=== PATIENT | female | born 1950 | race American Indian/Alaskan Native ===

== ENCOUNTER 2017-05-07 08:42 | Outpatient (CLI) | payer OTHER ==
--- NOTE | 2017-05-07 09:30 | Mammography Report ---
Bilateral mammogram: No previous studies available. CAD study utilized. Findings: Heterogeneous breast parenchyma bilaterally. Faint group of punctate calcification noted at upper outer right breast. 4 mm circumscribed density noted in the upper posterior left breast. Benign calcification left breast. Benign axillary nodes. Impression: Punctate calcifications identified at the right breast. Circumscribed density upper posterior left breast. Recommend comparison with previous studies. If previous studies are not available spot mag and if necessary sonographic examination advised. BI-RADS CATEGORY: 0 = Needs additional imaging evaluation ACR BI-RADS MAMMOGRAPHIC CODES: 0 = Needs additional imaging evaluation; 1 = Negative; 2 = Benign; 3 = Probably benign; 4 = Suspicious; 5 = Malignant; 6 = Known biopsy-proven malignancy COMMENT: 1. Dense breast tissue, i.e., adenosis, fibrocystic changes, etc., may obscure an underlying neoplasm. 2. Approximately 10% of cancers are not detected with mammography. 3. A negative mammography report should not delay biopsy if a clinically suspicious mass is present. COMMENT: Patient follow-up letters are generated in [employer].
== END 2017-05-07 08:43 | disposition home or self-care (01) ==
LOC: SPVWC 08:42
PROVIDERS: ATTEND Family Medicine
DX: Z12.31 Encounter for screening mammogram for malignant neoplasm of breast (principal)
CPT/HCPCS: 77067; G0202

== ENCOUNTER 2018-06-22 08:59 | Outpatient (CLI) | payer OTHER ==
--- NOTE | 2018-07-01 14:06 | Mammography Report ---
BILATERAL DIGITAL DIAGNOSTIC MAMMOGRAM : 06/22/18 08:59:00 CLINICAL: Six month follow-up right calcifications. COMPARISON:12/23/17 and 05/07/17 mammograms FINDINGS: Routine views plus right ML and CC magnification views were performed. Right upper outer scattered largely punctate calcifications are stable. No associated mass or architectural distortion. Stable left upper more scattered punctate calcifications. IMPRESSION: Stable probably benign calcifications. BI-RADS CATEGORY: 3 -- Probably Benign RECOMMENDATION: 6 month follow-up right magnification views. ACR BI-RADS MAMMOGRAPHIC CODES: 0 = Needs additional imaging evaluation; 1 = Negative; 2 = Benign; 3 = Probably benign; 4 = Suspicious; 5 = Malignant; 6 = Known biopsy-proven malignancy COMMENT: 1. Dense breast tissue, i.e., adenosis, fibrocystic changes, etc., may obscure an underlying neoplasm. 2. Approximately 10% of cancers are not detected with mammography. 3. A negative mammography report should not delay biopsy if a clinically suspicious mass is present. COMMENT: Patient follow-up letters are generated by our [employer] application.
== END 2018-06-22 09:00 | disposition home or self-care (01) ==
LOC: SPVWC 08:59
PROVIDERS: ATTEND Family Medicine
DX: R92.8 Other abnormal and inconclusive findings on diagnostic imaging of breast (principal); I10 Essential (primary) hypertension; Z88.0 Allergy status to penicillin
CPT/HCPCS: 77066

== ENCOUNTER 2018-12-22 09:01 | Outpatient (CLI) | payer OTHER ==
--- NOTE | 2018-12-22 09:32 | Mammography Report ---
Spot compression magnification of calcifications right upper breast: Compared to 06/22/18 and 12/23/17. History: Follow up of cluster of probably benign calcifications upper right breast. Findings: There is scattered largely punctate calcifications noted at the upper right breast mid and posterior aspect. No significant interval change or pleomorphism is noted. No mass is seen. Impression: Probably benign calcifications. Six-month followup with bilateral diagnostic mammogram and spot compression magnification of calcifications right breast is recommended. BI-RADS CATEGORY: 3 = Probably benign ACR BI-RADS MAMMOGRAPHIC CODES: 0 = Needs additional imaging evaluation; 1 = Negative; 2 = Benign; 3 = Probably benign; 4 = Suspicious; 5 = Malignant; 6 = Known biopsy-proven malignancy COMMENT: 1. Dense breast tissue, i.e., adenosis, fibrocystic changes, etc., may obscure an underlying neoplasm. 2. Approximately 10% of cancers are not detected with mammography. 3. A negative mammography report should not delay biopsy if a clinically suspicious mass is present. COMMENT: Patient follow-up letters are generated in [employer].
== END 2018-12-22 09:02 | disposition home or self-care (01) ==
LOC: SPVWC 09:01
PROVIDERS: ATTEND Family Medicine
DX: R92.8 Other abnormal and inconclusive findings on diagnostic imaging of breast (principal); I10 Essential (primary) hypertension

== ENCOUNTER 2019-06-19 08:17 | Outpatient (CLI) | payer OTHER ==
--- NOTE | 2019-06-19 09:18 | Mammography Report ---
BILATERAL DIGITAL DIAGNOSTIC MAMMOGRAM with CAD INDICATION: Follow-up right calcifications and routine screening of the left breast. TECHNIQUE: Digital bilateral mammographic imaging was performed. COMPARISON: 12/22/2018 right mammogram and 06/22/2018 bilateral mammogram FINDINGS: Breast Density: The breasts are heterogeneously dense, which may obscure small masses. There is no evidence of dominant mass, suspicious calcifications or architectural distortion in eithe r breast. Right lateral and CC magnification views demonstrate stable scattered amorphous and punctat e calcifications. A left retroareolar biopsy clip. IMPRESSION: No mammographic evidence of malignancy. Benign calcifications. BI-RADS Category 2: Benign. Recommend routine screening mammography in one year A "normal" or negative report should not discourage follow up or biopsy of a clinically significant f inding. A written summary of these findings will be mailed to the patient. The patient will be entered into a mammography reporting system which will generate a reminder letter for the patient's next appointmen t at the appropriate interval. FURTHER INFORMATION: According to the [employer], yearly mammograms are recommend ed starting at age 40 and continuing as long as a woman is in good health. Breast MRI is recommended for women with an approximately 20-25% or greater lifetime risk of breast cancer, including women wi th a strong family history of breast or ovarian cancer and women who have been treated for Hodgkin's disease. Signer Name: Kg Rollins MD Signed: 06/19/2019 9:13 AM Workstation Name: [id number]
== END 2019-06-19 08:18 | disposition home or self-care (01) ==
LOC: MAMMO 08:17
PROVIDERS: ATTEND Family Medicine
DX: R92.8 Other abnormal and inconclusive findings on diagnostic imaging of breast (principal); I10 Essential (primary) hypertension
CPT/HCPCS: 77066

== ENCOUNTER 2022-05-29 09:36 | Outpatient (CLI) | payer OTHER | END 2022-05-29 09:37 | disposition home or self-care (01) | LOC: MAMMO 09:36 | PROVIDERS: ATTEND Family Medicine | DX: Z12.31 Encounter for screening mammogram for malignant neoplasm of breast (principal) | CPT/HCPCS: 77067 ==